=== PATIENT | female | born 1975 | race Caucasian/White ===

== ENCOUNTER 2020-01-22 16:24 | Inpatient (IN) | payer MEDICAID, SELFPAY ==
[~2020-01-22] VITALS: Ht 167.6 cm; Wt 113.4 kg
[2020-01-22] MEDS ORDERED: LABETALOL 100 MG/20 ML VIAL ONE (16:57)
[2020-01-22] MEDS ORDERED: MAG SULF 2000 MG/WATER PREMIX 50 ML IV ONE (17:25)
[2020-01-22 17:36] VITALS: BP 181/97
[2020-01-22] MEDS: MAG SULF 2000 MG/WATER PREMIX 100 ML IV SCH ×3 (17:57→21:49)
[2020-01-22 18:10] LABS: BASOPHILS % (AUTO) 0.3 % (0.0-2.0); EOSINOPHILS # (AUTO) 0.1 K/uL (0-0.4); EOSINOPHILS % (AUTO) 1.3 % (0.0-4.0); HEMATOCRIT 35.3 % (36-48); HEMOGLOBIN 11.2 g/dL (12.0-16.0); LYMPHOCYTES % (AUTO) 17.9 % (20.5-51.1); MEAN CORPUSCULAR HEMOGLOBIN 27 pg (27-31); MEAN CORPUSCULAR HGB CONC 32 g/dL (33-37); MEAN CORPUSCULAR VOLUME 86.3 fL (80-94); MONOCYTES # (AUTO) 0.8 K/uL (0.8-1.0); MONOCYTES % (AUTO) 6.8 % (1.7-9.3); NEUTROPHILS # (AUTO) 8.3 K/uL (1.8-7.7); NEUTROPHILS % (AUTO) 73.7 % (42.2-75.2); PLATELET COUNT (AUTO) 231 K/uL (140-450); RED BLOOD CELL COUNT(AUTO) 4.09 MIL/uL (4.20-5.40); RED CELL DISTRIBUTION WIDTH 15.7 % (11.6-13.7); WHITE BLOOD COUNT (AUTO) 11.2 K/uL (4.8-10.8)
[2020-01-22 18:22] LABS: APPEARANCE,URINE CLOUDY (CLEAR); BILIRUBIN,URINE NEGATIVE (NEGATIVE); BLOOD, URINE 3+ (NEGATIVE); COLOR,URINE YELLOW (YELLOW); LEUKOCYTE ESTERASE ,URINE 1+ (NEGATIVE); NITRITE, URINE NEGATIVE (NEGATIVE); PH,URINE 6.5 (5.0-9.0); UGLUCOSE NEGATIVE (NEGATIVE)
[2020-01-22] MEDS ORDERED: MAG SULF 20 GM/H2O PREMIX DRIP 500 ML IV ONE (18:27)
[2020-01-22 18:32] LABS: PROTHROMBIN TIME 9.3 secs (10.8-13.4)
[2020-01-22] MEDS ORDERED: PROMETHAZINE 25 MG/ML VIAL IVP PRN (18:45)
[2020-01-22 18:50] LABS: URINE TOTAL PROTEIN 91.5 mg/dL (0-12)
[2020-01-22 18:58] LABS: BARBITURATE, URINE NEGATIVE ng/ml (NEG <=200); BENZODIAZEPINE, URINE NEGATIVE ng/mL (NEG <=200); CANNABINOID, URINE NEGATIVE ng/mL (NEG <=50); COCAINE, URINE NEGATIVE ng/mL (NEG <=300); OPIATE, URINE NEGATIVE ng/mL (NEG <=2000); PHENCYCLIDINE SCREEN,URINE NEGATIVE ng/mL (NEG <=25)
[2020-01-22 19:06] LABS: RBC,URINE 80-100 /HPF (0-5); WBC,URINE 20-60 /HPF (0-5)
[2020-01-22] MEDS ORDERED: MORPHINE PRES FREE 10 MG/10 ML AMP IV ONE (19:07)
[2020-01-22] MEDS ORDERED: MIDAZOLAM 2 MG/2 ML VIAL ONE (19:07)
[2020-01-22 19:08] LABS: OTHER CASTS, URINE WBC CASTS 1+ /LPF (None Seen)
[2020-01-22] MEDS ORDERED: OXYTOCIN 10 UNITS in LACTATED RINGERS 1,000 ML IV SCH (19:17)
[2020-01-22] MEDS ORDERED: METHYLERGONOVINE 0.2 MG/ML AMP IM PRN (19:20)
[2020-01-22] MEDS ORDERED: MEASLES, MUMPS, AND RUBELLA 1 VIAL SQVAC PRN (19:20)
[2020-01-22] MEDS ORDERED: ceFAZolin 1,000 MG VIAL ONE (19:36)
[2020-01-22] MEDS ORDERED: ONDANSETRON 4 MG/2 ML VIAL IVP PRN ×2 (20:45)
[2020-01-22] MEDS ORDERED: MEPERIDINE 25 MG/ML SYR IVP PRN (20:45)
[2020-01-22] MEDS ORDERED: NALOXONE 0.4 MG/ML VIAL IVP PRN ×3 (20:45)
[2020-01-22] MEDS ORDERED: diphenhydrAMINE 50 MG/ML VIAL IVP PRN (20:45)
[2020-01-22] MEDS ORDERED: NALBUPHINE 10 MG/ML AMP IVP PRN (20:45)
[2020-01-22] MEDS ORDERED: HYDROmorphone 1 MG/ML AMP IVP PRN (20:45)
[2020-01-22] MEDS: OXYTOCIN 20 UNITS/LR PREMIX 1,000 ML IV SCH ×2 (21:38→21:49)
[2020-01-23] MEDS: diphenhydrAMINE 50 MG/ML VIAL IVP PRN ×3 (00:11→13:51)
[2020-01-23] MEDS: KETOROLAC 30 MG/ML VIAL IM/IVP SCH ×4 (01:58→20:33)
[2020-01-23] MEDS: MAG SULF 20 GM/H2O PREMIX DRIP 500 ML IV SCH ×2 (06:28→17:00)
[2020-01-23 06:38] LABS: BASOPHILS % (AUTO) 0.2 % (0.0-2.0); EOSINOPHILS # (AUTO) 0.1 K/uL (0-0.4); EOSINOPHILS % (AUTO) 0.7 % (0.0-4.0); HEMATOCRIT 34.3 % (36-48); LYMPHOCYTES # (AUTO) 1.7 K/uL (2.5-16.5); LYMPHOCYTES % (AUTO) 12.5 % (20.5-51.1); MEAN CORPUSCULAR HEMOGLOBIN 28 pg (27-31); MEAN CORPUSCULAR HGB CONC 32 g/dL (33-37); MEAN CORPUSCULAR VOLUME 86.3 fL (80-94); MONOCYTES # (AUTO) 0.8 K/uL (0.8-1.0); MONOCYTES % (AUTO) 5.8 % (1.7-9.3); NEUTROPHILS # (AUTO) 10.9 K/uL (1.8-7.7); NEUTROPHILS % (AUTO) 80.8 % (42.2-75.2); PLATELET COUNT (AUTO) 222 K/uL (140-450); RED BLOOD CELL COUNT(AUTO) 3.98 MIL/uL (4.20-5.40); RED CELL DISTRIBUTION WIDTH 15.8 % (11.6-13.7); WHITE BLOOD COUNT (AUTO) 13.5 K/uL (4.8-10.8)
[2020-01-23] MEDS: OXYTOCIN 20 UNITS/LR PREMIX 1,000 ML IV SCH (13:51)
[2020-01-23] MEDS ORDERED: diphenhydrAMINE 50 MG CAP PO PRN (22:30)
[2020-01-24] MEDS: oxyCODONE/APAP 5/325 MG 1 TAB TAB PO PRN ×3 (02:09→09:45)
--- NOTE | 2020-01-24 06:31 | NUR ---
PATIENT HAS BEEN SCREENED AND CATEGORIZED LOW NUTRITION RISK. PATIENT WILL BE SEEN WITHIN 7 DAYS OF ADMISSION. 01/29/20 CROW KENT MS, RDN
[2020-01-24 09:28] LABS: HEPATITIS B SURFACE ANTIGEN Negative (Negative)
[2020-01-24] MEDS: bisacodyL 10 MG SUPP RC SCH (09:38)
[2020-01-24] MEDS ORDERED: HYDROcodone/APAP 5/325 MG 1 TAB TAB PO PRN (12:35)
[2020-01-24] MEDS ORDERED: NIFEdipine 60 MG TABER PO SCH ×2 (12:45→13:00)
[2020-01-24] MEDS: SIMETHICONE 80 MG TAB.CHEW PO PRN (13:21)
[2020-01-24] MEDS: IBUPROFEN 600 MG TAB PO PRN ×2 (13:26→22:53)
[2020-01-24] MEDS ORDERED: MORPHINE SULFATE 5 MG/ML VIAL IM PRN (16:25)
[2020-01-24] MEDS ORDERED: MORPHINE SULFATE 10 MG/ML VIAL ONE (16:32)
[2020-01-24 16:52] VITALS: BP 165/105
[2020-01-24] MEDS ORDERED: NIFEdipine 30 MG TABER PO ONE ×2 (21:05→22:19)
[2020-01-25] MEDS: HYDROcodone/APAP 5/325 MG 1 TAB TAB PO PRN ×4 (01:15→23:16)
[2020-01-25] MEDS ORDERED: CAMERA MC ONE ×2 (02:07→23:11)
[2020-01-25] MEDS: IBUPROFEN 600 MG TAB PO PRN ×2 (06:39→12:32)
[2020-01-25] MEDS: NIFEdipine 90 MG TABER PO SCH (08:30)
[2020-01-25] MEDS ORDERED: NIFEdipine 60 MG TABER PO SCH (09:00)
[2020-01-25] MEDS: IBUPROFEN 800 MG TAB PO PRN (20:12)
[2020-01-25 22:18] LABS: URIC ACID 5.6 mg/dL (2.6-7.2)
[2020-01-26] MEDS: SIMETHICONE 80 MG TAB.CHEW PO PRN ×2 (02:42→08:11)
[2020-01-26] MEDS: IBUPROFEN 800 MG TAB PO PRN (04:21)
[2020-01-26] MEDS: NIFEdipine 90 MG TABER PO SCH (08:11)
[2020-01-26] MEDS: HYDROcodone/APAP 5/325 MG 1 TAB TAB PO PRN (08:12)
[2020-01-26] MEDS: bisacodyL 10 MG SUPP RC SCH (08:15)
== END 2020-01-26 11:40 | disposition home or self-care (01) | DRG 540 ==
LOC: MLD 16:24 → OBSVTOIN 18:49 → MFCC 21:40
PROVIDERS: ADMIT Obstetrics & Gynecology; ATTEND Obstetrics & Gynecology
PROC: 10D00Z1 Extraction of Products of Conception, Low, Open Approach (ICD-10-PCS; principal; 2020-01-22 19:00)
PROC: 3E0234Z Introduction of Serum, Toxoid and Vaccine into Muscle, Percutaneous Approach (ICD-10-PCS; 2020-01-25)
DX: O14.14 Severe pre-eclampsia complicating childbirth (principal); O34.211 Maternal care for low transverse scar from previous cesarean delivery; Z37.0 Single live birth; Z3A.38 38 weeks gestation of pregnancy; Z23 Encounter for immunization; Z20.828 Contact with and (suspected) exposure to other viral communicable diseases
CPT/HCPCS: G0378 ×2; 36415; 51702; 76805; 80305; 81001; 82570; 83735; 84550; 85025; 85384; 85610; 85730; 86592; 86762; 86886; 86900; 86901; 87086; 87340; 87653-90; 90715; J0690; J1200; J1885; J2250; J2270; J2405; J2550; J2590; J3475; J3490; J7120; Q0092; Q0163; U0003-CS

== ENCOUNTER 2021-07-19 14:45 | Inpatient (IN) | payer MEDICAID, SELFPAY ==
[~2021-07-19] VITALS: Ht 167.6 cm; Wt 113.4 kg
[2021-07-19] MEDS ORDERED: LABETALOL 100 MG/20 ML VIAL ONE (16:04)
[2021-07-19] MEDS ORDERED: MAG SULF 2000 MG/WATER PREMIX 0 ML IV ONE (16:05)
[2021-07-19] MEDS ORDERED: COMMUNICATION ORDER MC STA (16:12)
[2021-07-19 16:53] VITALS: BP 186/106
[2021-07-19] MEDS: MAG SULF 20 GM/H2O PREMIX DRIP 500 ML IV SCH (17:08)
[2021-07-19 17:09] LABS: BASOPHILS % (AUTO) 0.3 % (0.0-2.0); EOSINOPHILS # (AUTO) 0.1 K/uL (0-0.4); EOSINOPHILS % (AUTO) 1.2 % (0.0-4.0); HEMATOCRIT 32.5 % (36-48); HEMOGLOBIN 10.7 g/dL (12.0-16.0); MEAN CORPUSCULAR HEMOGLOBIN 28 pg (27-31); MEAN CORPUSCULAR HGB CONC 33 g/dL (33-37); MEAN CORPUSCULAR VOLUME 84.2 fL (80-94); MONOCYTES # (AUTO) 0.8 K/uL (0.8-1.0); MONOCYTES % (AUTO) 6.7 % (1.7-9.3); NEUTROPHILS % (AUTO) 74.8 % (42.2-75.2); PLATELET COUNT (AUTO) 260 K/uL (140-450); RED BLOOD CELL COUNT(AUTO) 3.86 MIL/uL (4.20-5.40); RED CELL DISTRIBUTION WIDTH 16.9 % (11.6-13.7); WHITE BLOOD COUNT (AUTO) 12.1 K/uL (4.8-10.8)
[2021-07-19] MEDS ORDERED: LABETALOL 20 MG/4 ML VIAL IVP SCH (17:10)
[2021-07-19] MEDS ORDERED: MAG SULF 2000 MG/WATER PREMIX 50 ML IV ONE ×2 (17:10→17:15)
[2021-07-19] MEDS: BETAMETH ACET/BETAMETH NA PH 30 MG/5 ML VIAL IM SCH (18:13)
[2021-07-19 18:15] LABS: URIC ACID 6.8 mg/dL (2.6-7.2)
[2021-07-19 22:27] LABS: URINE TOTAL PROTEIN 63.7 mg/dL (0-12)
[2021-07-19 22:31] LABS: APPEARANCE,URINE CLEAR (CLEAR); BILIRUBIN,URINE NEGATIVE (NEGATIVE); BLOOD, URINE NEGATIVE (NEGATIVE); COLOR,URINE BROWN (YELLOW); LEUKOCYTE ESTERASE ,URINE TRACE (NEGATIVE); NITRITE, URINE NEGATIVE (NEGATIVE); UGLUCOSE NEGATIVE (NEGATIVE)
[2021-07-19 22:45] LABS: RBC,URINE 0-5 /HPF (0-5); WBC,URINE 0-5 /HPF (0-5)
[2021-07-20] MEDS: MAG SULF 20 GM/H2O PREMIX DRIP 500 ML IV SCH ×3 (01:54→23:35)
[2021-07-20] MEDS: LACTATED RINGERS 1,000 ML IV SCH ×2 (03:04→17:08)
--- NOTE | 2021-07-20 08:48 | NUR ---
PATIENT HAS BEEN SCREENED AND CATEGORIZED LOW NUTRITION RISK. PATIENT WILL BE SEEN WITHIN 7 DAYS OF ADMISSION. 07/26/[address]
[2021-07-20] MEDS ORDERED: LABETALOL 100 MG/20 ML VIAL ONE (09:35)
[2021-07-20] MEDS ORDERED: LABETALOL 100 MG/20 ML VIAL IV PRN (09:35)
[2021-07-20] MEDS: BETAMETH ACET/BETAMETH NA PH 30 MG/5 ML VIAL IM SCH (18:15)
[2021-07-20] MEDS ORDERED: diphenhydrAMINE 50 MG CAP PO PRN (20:55)
[2021-07-21] MEDS: LABETALOL 100 MG/20 ML VIAL IV PRN ×2 (05:02→05:42)
[2021-07-21] MEDS ORDERED: SODIUM CHLORIDE 0.65% 45 ML BTL NS PRN (08:45)
[2021-07-21] MEDS: MAG SULF 20 GM/H2O PREMIX DRIP 500 ML IV SCH ×2 (09:19→22:23)
[2021-07-21 10:39] LABS: HEMATOCRIT 31.3 % (36-48); HEMOGLOBIN 10.1 g/dL (12.0-16.0); MEAN CORPUSCULAR HEMOGLOBIN 28 pg (27-31); MEAN CORPUSCULAR HGB CONC 32 g/dL (33-37); MEAN CORPUSCULAR VOLUME 84.8 fL (80-94); PLATELET COUNT (AUTO) 282 K/uL (140-450); RED BLOOD CELL COUNT(AUTO) 3.69 MIL/uL (4.20-5.40); RED CELL DISTRIBUTION WIDTH 17.4 % (11.6-13.7)
[2021-07-21 11:09] LABS: BASOPHILS % (MANUAL) 0 % (0-2); EOSINOPHILS % (MANUAL) 0 % (0-4); LYMPHOCYTES % (MANUAL) 9 % (20-46); MONOCYTES % (MANUAL) 5 % (5-12)
[2021-07-21 11:22] LABS: ALBUMIN 2.5 g/dL (3.4-5.0); ANION GAP 15.7 (8-16); CARBON DIOXIDE 22.1 mmol/L (21-32); CREATININE 0.7 mg/dL (0.6-1.3); POTASSIUM 4.8 mmol/L (3.5-5.1); TOTAL BILIRUBIN 0.2 mg/dL (0.0-1.0)
[2021-07-21] MEDS ORDERED: LABETALOL 100 MG/20 ML VIAL IV PRN (11:25)
[2021-07-21] MEDS ORDERED: MORPHINE PRES FREE 10 MG/10 ML AMP IV ONE (11:25)
[2021-07-21] MEDS ORDERED: ONDANSETRON 4 MG/2 ML VIAL ONE (11:50)
[2021-07-21] MEDS ORDERED: ceFAZolin 1,000 MG VIAL ONE (11:50)
[2021-07-21] MEDS ORDERED: OXYTOCIN 10 UNITS/ML VIAL ONE (11:50)
[2021-07-21] MEDS ORDERED: ePHEDrine 50 MG/ML VIAL ONE (11:50)
[2021-07-21] MEDS ORDERED: DEXAMETHASONE 4 MG/ML VIAL ONE (11:50)
[2021-07-21] MEDS ORDERED: PHENYLEPHRINE 10 MG/ML VIAL ONE (11:50)
[2021-07-21] MEDS: OXYTOCIN 20 UNITS/LR PREMIX 1,000 ML IV ONE ×2 (13:42→14:00)
[2021-07-21] MEDS ORDERED: MEASLES, MUMPS, AND RUBELLA 1 VIAL SQVAC ONE (14:55)
[2021-07-21] MEDS ORDERED: MEASLES, MUMPS, AND RUBELLA 1 VIAL SQVAC PRN ×2 (15:05→15:10)
[2021-07-21] MEDS: KETOROLAC 30 MG/ML VIAL IVP PRN ×2 (16:25→22:40)
[2021-07-21] MEDS ORDERED: diphenhydrAMINE 50 MG/ML VIAL ONE ×2 (16:29→22:46)
[2021-07-21] MEDS: diphenhydrAMINE 50 MG/ML VIAL IVP SCH ×2 (16:35→22:48)
[2021-07-21] MEDS ORDERED: OXYTOCIN 20 UNITS in LACTATED RINGERS 1,000 ML IV SCH (21:20)
[2021-07-22] MEDS: KETOROLAC 30 MG/ML VIAL IVP PRN (05:57)
[2021-07-22] MEDS ORDERED: diphenhydrAMINE 50 MG/ML VIAL ONE (06:07)
[2021-07-22] MEDS: diphenhydrAMINE 50 MG/ML VIAL IVP SCH (06:10)
[2021-07-22 06:35] LABS: BASOPHILS % (AUTO) 0.1 % (0.0-2.0); EOSINOPHILS % (AUTO) 0.2 % (0.0-4.0); HEMATOCRIT 26.6 % (36-48); HEMOGLOBIN 8.8 g/dL (12.0-16.0); LYMPHOCYTES % (AUTO) 10.6 % (20.5-51.1); MEAN CORPUSCULAR HEMOGLOBIN 28 pg (27-31); MEAN CORPUSCULAR HGB CONC 33 g/dL (33-37); MEAN CORPUSCULAR VOLUME 85.1 fL (80-94); MONOCYTES # (AUTO) 1.5 K/uL (0.8-1.0); MONOCYTES % (AUTO) 8.3 % (1.7-9.3); NEUTROPHILS # (AUTO) 14.9 K/uL (1.8-7.7); NEUTROPHILS % (AUTO) 80.8 % (42.2-75.2); PLATELET COUNT (AUTO) 270 K/uL (140-450); RED BLOOD CELL COUNT(AUTO) 3.13 MIL/uL (4.20-5.40); RED CELL DISTRIBUTION WIDTH 17.4 % (11.6-13.7); WHITE BLOOD COUNT (AUTO) 18.5 K/uL (4.8-10.8)
[2021-07-22] MEDS ORDERED: SIMETHICONE 80 MG TAB.CHEW PO PRN (11:30)
[2021-07-22] MEDS ORDERED: bisacodyL 5 MG TABEC PO PRN (11:30)
[2021-07-22] MEDS ORDERED: oxyCODONE/APAP 5/325 MG 1 TAB TAB PO PRN (11:30)
[2021-07-22] MEDS ORDERED: KETOROLAC 30 MG/ML VIAL IVP PRN (11:30)
[2021-07-22] MEDS ORDERED: METHYLERGONOVINE 0.2 MG/ML AMP IM PRN (11:30)
[2021-07-22] MEDS ORDERED: MEASLES, MUMPS, AND RUBELLA 1 VIAL SQVAC ONE (11:30)
[2021-07-22] MEDS ORDERED: HYDROcodone/APAP 5/325 MG 1 TAB TAB PO PRN (12:00)
[2021-07-22] MEDS: NIFEdipine 60 MG TABER PO SCH (13:46)
[2021-07-22] MEDS ORDERED: LABETALOL 100 MG/20 ML VIAL IV STA (15:30)
[2021-07-22] MEDS ORDERED: NIFEdipine 30 MG TABER PO STA (15:30)
[2021-07-22] MEDS: IBUPROFEN 800 MG TAB PO SCH (16:40)
[2021-07-22] MEDS: HYDROcodone/APAP 10/325 MG 1 TAB TAB PO PRN (18:46)
[2021-07-22] MEDS ORDERED: LABETALOL 100 MG/20 ML VIAL IV ONE (20:05)
[2021-07-22] MEDS: LABETALOL 200 MG TAB PO SCH (21:00)
[2021-07-22] MEDS ORDERED: TEMAZEPAM 15 MG CAP PO PRN (22:00)
[2021-07-23] MEDS: IBUPROFEN 800 MG TAB PO SCH ×2 (00:33→17:29)
[2021-07-23] MEDS: HYDROcodone/APAP 10/325 MG 1 TAB TAB PO PRN (03:37)
[2021-07-23 07:43] LABS: BASOPHILS # (AUTO) 0.1 K/uL (0.00-0.22); BASOPHILS % (AUTO) 0.4 % (0.0-2.0); EOSINOPHILS # (AUTO) 0.2 K/uL (0-0.4); EOSINOPHILS % (AUTO) 1.3 % (0.0-4.0); HEMATOCRIT 26.3 % (36-48); HEMOGLOBIN 8.6 g/dL (12.0-16.0); LYMPHOCYTES # (AUTO) 2.7 K/uL (2.5-16.5); MEAN CORPUSCULAR HEMOGLOBIN 28 pg (27-31); MEAN CORPUSCULAR HGB CONC 33 g/dL (33-37); MEAN CORPUSCULAR VOLUME 84.9 fL (80-94); MONOCYTES # (AUTO) 1.2 K/uL (0.8-1.0); MONOCYTES % (AUTO) 7.4 % (1.7-9.3); NEUTROPHILS # (AUTO) 11.8 K/uL (1.8-7.7); NEUTROPHILS % (AUTO) 73.9 % (42.2-75.2); PLATELET COUNT (AUTO) 258 K/uL (140-450); RED CELL DISTRIBUTION WIDTH 17.7 % (11.6-13.7)
[2021-07-23] MEDS: bisacodyL 5 MG TABEC PO PRN (08:33)
[2021-07-23] MEDS: LABETALOL 200 MG TAB PO SCH ×2 (08:35→22:07)
[2021-07-23] MEDS: NIFEdipine 60 MG TABER PO SCH (09:11)
[2021-07-23] MEDS ORDERED: oxyCODONE/APAP 5/325 MG 1 TAB TAB PO PRN (09:45)
[2021-07-23] MEDS ORDERED: oxyCODONE/APAP 5/325 MG 1 TAB TAB ONE (09:59)
[2021-07-23] MEDS: oxyCODONE/APAP 5/325 MG 1 TAB TAB PO PRN ×3 (11:26→23:07)
[2021-07-23] MEDS ORDERED: FLU VACCINE QS2021-22 0.5 ML SYR IMVAC ONE (16:50)
[2021-07-23] MEDS ORDERED: CAMERA MC ONE (19:42)
[2021-07-24] MEDS: IBUPROFEN 800 MG TAB PO SCH ×3 (02:25→18:18)
[2021-07-24] MEDS: oxyCODONE/APAP 5/325 MG 1 TAB TAB PO PRN ×3 (08:11→20:07)
[2021-07-24] MEDS: SIMETHICONE 80 MG TAB.CHEW PO PRN ×2 (09:08→20:11)
[2021-07-24] MEDS: LABETALOL 200 MG TAB PO SCH ×2 (09:08→20:10)
[2021-07-24] MEDS: NIFEdipine 60 MG TABER PO SCH (09:09)
[2021-07-24] MEDS: bisacodyL 5 MG TABEC PO PRN (14:56)
[2021-07-25] MEDS: oxyCODONE/APAP 5/325 MG 1 TAB TAB PO PRN ×2 (02:36→08:48)
[2021-07-25] MEDS ORDERED: CAMERA MC ONE (03:27)
[2021-07-25] MEDS: IBUPROFEN 800 MG TAB PO SCH ×2 (03:45→13:26)
[2021-07-25] MEDS: NIFEdipine 60 MG TABER PO SCH (08:47)
[2021-07-25] MEDS: SIMETHICONE 80 MG TAB.CHEW PO PRN (08:47)
[2021-07-25] MEDS: LABETALOL 200 MG TAB PO SCH (08:47)
[2021-07-25] MEDS ORDERED: SODIUM FERRIC GLUCONATE 125 MG in NACL 0.9% 100 ML IV SCH (11:00)
== END 2021-07-25 14:00 | disposition home or self-care (01) | DRG 540 ==
LOC: MLD 14:45 → MFCC 14:46 → OBSVTOIN 15:49 → MLD 21:55 → MFCC 07-23 13:30
PROVIDERS: ADMIT Obstetrics & Gynecology; ATTEND Obstetrics & Gynecology
PROC: 10D00Z1 Extraction of Products of Conception, Low, Open Approach (ICD-10-PCS; principal; 2021-07-25)
DX: O11.4 Pre-existing hypertension with pre-eclampsia, complicating childbirth (principal); D62 Acute posthemorrhagic anemia; O99.42 Diseases of the circulatory system complicating childbirth; O34.211 Maternal care for low transverse scar from previous cesarean delivery; I16.0 Hypertensive urgency; Z20.822 Contact with and (suspected) exposure to COVID-19; Z37.0 Single live birth; Z88.8 Allergy status to other drugs, medicaments and biological substances; Z91.013 Allergy to seafood; Z3A.36 36 weeks gestation of pregnancy; O99.02 Anemia complicating childbirth
CPT/HCPCS: 36415; 51702; 76805; 80053; 81001; 82570; 83735; 84550; 85025; 85384; 86592; 86762; 86886; 86900; 86901; 87086; 87340; 87653-90; 90715; G0378; J0690; J0702; J1100; J1200; J1885; J2270; J2370; J2405; J2590; J2916; J3475; J3490; J7060; Q0092

== ENCOUNTER 2021-09-13 13:03 | Emergency (ER) | payer MEDICAID, SELFPAY ==
[~2021-09-13] VITALS: Ht 167.6 cm; Wt 103.2 kg
[2021-09-13 13:08] VITALS: BP 199/100
--- NOTE | 2021-09-13 13:22 | NUR ---
PT AMB TO BED 8.
--- NOTE | 2021-09-13 13:40 | NUR ---
45 Y/O FEMALE BIB SELF FOR LEFT 3RD TOE LAC WOUND. PT STATES A PIECE OF GLASS FELL ON LEFT 3RD TOE X LAST NIGHT. PAIN RATED 6/10. BP 199/100 AT THIS TIME. PT DENIES GARZON, FEVER, CHILLS. PT A&O X4. PMH: HTN, C SECTION X3 MEDS: DENIES ALLERGIES: ERYTHROMYCIN, SHELLFISH
--- NOTE | 2021-09-13 13:48 | NUR ---
ALEXANDER ORSINDHU AT BEDSIDE.
[2021-09-13] MEDS ORDERED: IBUPROFEN 600 MG TAB PO ONE (13:55)
--- NOTE | 2021-09-13 14:01 | NUR ---
XR AT PT BEDSIDE
[2021-09-13] MEDS ORDERED: NAPR-54 PO (14:37)
[2021-09-13] MEDS ORDERED: NIFE90TE63 PO (14:49)
[2021-09-13] MEDS ORDERED: LABE200T9 PO (14:49)
--- NOTE | 2021-09-13 14:54 | NUR ---
Patient discharged with v/s stable. Written and verbal after care instructions given and explained. Patient alert, oriented and verbalized understanding of instructions. Ambulatory with steady gait. All questions addressed prior to discharge. ID band removed. Patient advised to follow up with PMD. Rx of LABETALOL, NAPROXEN, NIFEDIPINE given. Patient educated on indication of medication including possible reaction and side effects. Opportunity to ask questions provided and answered.
[2021-09-13 14:59] VITALS: BP 150/89
== END 2021-09-13 14:59 | disposition home or self-care (01) ==
LOC: MED 13:03
DX: S91.115A Laceration without foreign body of left lesser toe(s) without damage to nail, initial encounter (principal); I10 Essential (primary) hypertension; Z88.1 Allergy status to other antibiotic agents; Z91.013 Allergy to seafood; W04.XXXA Fall while being carried or supported by other persons, initial encounter; Y93.89 Activity, other specified; Y92.89 Other specified places as the place of occurrence of the external cause; Y99.8 Other external cause status
CPT/HCPCS: 73660; 99283

== ENCOUNTER 2024-01-30 05:19 | Emergency (ER) | payer MEDICAID ==
[~2024-01-30] VITALS: Ht 170.2 cm; Wt 81.6 kg
[~2024-01-30 05:19] MED LIST: LABE200T12 PO; NAPR-337 PO; NIFE90TE63 PO
[2024-01-30 05:28] VITALS: BP 138/74; PULSE 92; RESP 16; TEMP 97.3; O2SAT 98
[2024-01-30 05:51] VITALS: TEMP 98
[2024-01-30] MEDS: methocarbamoL 500 MG TAB PO ONE (06:53)
[2024-01-30] MEDS ORDERED: GABA300C PO (07:31)
[2024-01-30 07:34] VITALS: PULSE 91; RESP 17; O2SAT 100
[2024-01-30] MEDS ORDERED: ONDA-188 SL (07:48)
[2024-01-30 07:54] VITALS: BP 157/89
== END 2024-01-30 07:45 | disposition home or self-care (01) ==
LOC: MED 05:19
DX: S82.302A Unspecified fracture of lower end of left tibia, initial encounter for closed fracture (principal); I10 Essential (primary) hypertension; Z79.899 Other long term (current) drug therapy; Z88.1 Allergy status to other antibiotic agents; Z91.013 Allergy to seafood; X58.XXXA Exposure to other specified factors, initial encounter; Y92.89 Other specified places as the place of occurrence of the external cause; Y93.89 Activity, other specified; Y99.8 Other external cause status
CPT/HCPCS: 73610; 99283